=== PATIENT | male | born 1980 | race Caucasian/White ===

== ENCOUNTER 2016-07-09 16:46 | Emergency (ER) | payer OTHER ==
--- NOTE | ~2016-07-09 | EKG ---
PATIENT: GIL CABRERA UNIT #: [id number] Ventricular Rate: 64 BPM Atrial Rate: 64 BPM P-R Interval: 150 ms QRS Duration: 86 ms Q-T Interval: 404 ms QTC Calculation(Bezet): 416 ms P [place]: -14 degrees Calculated R [place]: 19 degrees Calculated T [place]: 59 degrees Diagnosis Line: Normal sinus rhythm Diagnosis Line: Normal ECG Diagnosis Line: When compared with ECG of 25-MAY-2015 18:37, Diagnosis Line: No significant change was found Diagnosis Line: Confirmed by LOPEZ BOLIVAR MD ([id number]) on 07/12/2016 Diagnosis Line: 10:19:26 AM INTERPRETING MD: OSMEL MALAGON
--- NOTE | ~2016-07-09 | CT71 ---
[facility] A Service of [facility] RADIOLOGY TEXT RESULTS PATIENT: GIL CABRERA LOCATION: SED : 78 UNIT #: [id number] AGE: [address]: ANGEL COX SEX: M ORDER DR: [id number] [place] [id number] E MR#: [id number] Acc #: [id number] NAME: GIL CABRERA : 1980 SEX: M STUDY DATE/TIME: 07/09/2016 18:02 UNIT: SED ROOM: STUDY DESCRIPTION: CT Head Wo Contrast Attending Physician: Angel Cox Ordering Physician: Angel Cox Primary Care Physician: Jessika Hankins M.D. MEDICAL IMAGING REPORT This report is preliminary unless electronic signature is present. EXAM CT brain without contrast, 07/09/2016 COMPARISON 05/25/2015 HISTORY SUPPLIED Headache and shortness of breath since last night. TECHNIQUE Axial imaging of the brain was performed without contrast and directly compared to the patient's most recent examination of 05/25/2015. This CT exam was performed with one or more of the following radiation dose reduction techniques: automatic exposure control, adjustment of mA and/or kV according to patient size, and iterative reconstruction. FINDINGS Ventricular size and configuration remains normal. No intra or extraaxial mass lesions, fluid collections or mass effect are seen. No focal areas of low attenuation or evidence of acute intracranial hemorrhage. Bone windows are reviewed showing evidence of chronic sinus disease. CONCLUSION Negative noncontrast CT of the brain. Dictated by... Emeka Ferro M.D. THIS IS AN ELECTRONICALLY VERIFIED REPORT [facility] A Service of [facility] RADIOLOGY TEXT RESULTS PATIENT: GIL CABRERA LOCATION: SED : [birth year] UNIT #: [id number] AGE: [address]: ANGEL COX SEX: M ORDER DR: Emeka Ferro M.D. at 07/10/2016 7:29 AM KINGSLEY/jessy TD: 07/10/2016 00:15 JOB #: [id number] MEDICAL IMAGING REPORT Page 1 of 1
--- NOTE | ~2016-07-09 | CR72 ---
[facility]. [facility] A Service of [facility] & [facility] RADIOLOGY TEXT RESULTS PATIENT: GIL CABRERA LOCATION: SED : [birth year] UNIT #: [id number] AGE: [address]: ANGEL COX SEX: M ORDER DR: [id number] [place] [id number] E MR#: [id number] Acc #: [id number] NAME: GIL CABRERA : 1980 SEX: M STUDY DATE/TIME: 07/09/2016 18:03 UNIT: SED ROOM: STUDY DESCRIPTION: CR Chest Single View Portable Attending Physician: Angel Cox Ordering Physician: Angel Cox Primary Care Physician: Jessika Hankins M.D. MEDICAL IMAGING REPORT This report is preliminary unless electronic signature is present. EXAM Portable chest HISTORY SUPPLIED Chest pain, headache since last night. FINDINGS An AP portable view is obtained. Cardiovascular configuration is normal and the lungs are clear. CONCLUSION Negative portable chest. Dictated by... Emeka Ferro M.D. THIS IS AN ELECTRONICALLY VERIFIED REPORT Emeka Ferro M.D. at 07/10/2016 7:29 AM Panfilo TD: 07/10/2016 00:07 JOB #: [id number] MEDICAL IMAGING REPORT Page 1 of 1
[~2016-07-09 16:46] MED LIST: ATENOLOL PO; ATENOLOL50 MG PO; CIPRO PO; FLAGYL PO; FLEXERIL10 MG PO; IBUPROFEN800 MG PO; LISINOPRIL-HCTZ1 T14; NAPROSYN500 MG PO; PERCOCET5/325 PO; VOLTAREN50 MG PO; ZOFRAN ODT4 MG PO; ZYRTEC PO
[2016-07-09 18:01] LABS: BASOPHIL# 0.1 X10e3 (0-0.3); BASOPHIL% 0.8 % (0-2.5); EOSINOPHIL# 0.5 X10e3 (0-0.7); EOSINOPHIL% 4.8 % (0.0-7.0); HEMATOCRIT 47.5 % (38.0-50.0); HEMOGLOBIN 16.4 gm/dL (13.0-16.0); LYMPHOCYTE# 3.1 X10e3 (1.0-3.5); LYMPHOCYTE% 32.9 % (17.0-45.0); MEAN CORPUSCULAR HGB CONC 34.4 g/dL (30-36); MEAN PLATELET VOLUME 10.6 FL (6.5-11.5); MONOCYTE# 0.5 X10e3 (0-1.0); MONOCYTE% 5.4 % (3.0-12.0); NEUTROPHIL# 5.3 X10e3 (1.5-7.1); NEUTROPHIL% 56.1 % (40-75); PLATELET COUNT 276 X10e3 (140-420); RED BLOOD COUNT 5.29 X10e (3.90-5.60); RED CELL DISTRIBUTION WIDTH 13.2 % (11.0-15.5); WHITE BLOOD COUNT 9.4 X10e3 (4.0-10.5)
[2016-07-09 18:10] LABS: DIFF IND NO
[2016-07-09 18:17] LABS: POC - CKMB 1.5 ng/mL (0.0-7.9); POC - TROPONIN <0.05 ng/mL (<=0.05)
[2016-07-09 19:28] LABS: ALBUMIN SERUM 3.9 g/dL (3.5-5.0); BILIRUBIN, DIRECT 0.1 mg/dL (0.0-0.2); BILIRUBIN,INDIRECT 0.3 mg/dL (0.0-0.9); BILIRUBIN,TOTAL 0.4 mg/dL (0.2-2.0); BUN/CREATININE RATIO 12.85; CALCIUM SERUM 9.1 mg/dL (8.4-10.2); CREATININE SERUM 0.7 mg/dL (0.6-1.4); GLOM FILT RATE Estimated 120.6 mL/min (>60); POTASSIUM 3.8 mmol/L (3.5-5.1); PROTEIN TOTAL SERUM 7.3 g/dL (6.0-8.3)
== END 2016-07-09 19:12 | disposition home or self-care (01) ==
LOC: SED 16:46
PROVIDERS: Nurse Practitioner
DX: R07.89 Other chest pain (principal); I10 Essential (primary) hypertension; Z91.14 Patient's other noncompliance with medication regimen; F17.210 Nicotine dependence, cigarettes, uncomplicated
CPT/HCPCS: 36415; 70450; 71010; 80048; 80076; 82553; 84484; 85025; 93005; 99284